=== PATIENT | female | born 1935 | race Caucasian/White ===

== ENCOUNTER 2022-02-26 12:50 | Inpatient (IN) ==
[2022-02-26] MEDS ORDERED: SODIUM CHLORIDE 0.9% 1,000 ML IV STA (13:09)
[2022-02-26 13:39] LABS: INR 1.6; PT Patient Result 17.2 SECS (10.1-12.1); Partial Thromboplastin Time 29.7 SECS (23.7-32.9)
[2022-02-26 13:43] LABS: Bilirubin,Urine Negative (Negative); Blood, Urine Moderate mg/dL (Negative); Glucose,Urine (UA) Negative (Negative); Ketones,Urine Trace mg/dL (Negative); Nitrite,Urine Negative (Negative); Protein,Urine 100 mg/dL (Negative); Urine Appearance Clear (Clear); Urine Color Yellow (Yellow); Urine Specific Gravity >= 1.030 (1.001-1.035); Urine Urobilinogen 0.2 eU/dL (<2.0); Urine pH 5.5 (4.5-8.0)
[2022-02-26 13:45] LABS: Basophils % 0.2 % (0.0-0.8); Hematocrit 39.5 VOL% (35.7-47.0); Hemoglobin 12.8 GM/DL (12.0-16.0); Immature Granulocytes % 0.4 %; Immature Granulocytes Absolute 0.02 #; Lymphocytes # 0.5 10*3/uL (1.4-4.0); Lymphocytes % 11.9 % (21.3-54.2); Mean Corpuscular HGB Conc 32.4 GM/DL (32-36); Mean Corpuscular Volume 89.6 FL (87-102); Mean Platelet Volume 9.9 FL (9.6-12.0); Monocytes # 0.9 10*3/uL (0.11-0.8); Monocytes % 19.4 % (1.7-12.7); Neutrophils % 68.1 % (38.7-73.9); Platelet Count 196 T/CUMM (130-400); Red Blood Count 4.41 MC/CUMM (3.8-5.5); Red Cell Distribution Width 14.4 % (9.3-17.3); White Blood Count 4.5 T/CUMM (4-12)
[2022-02-26 13:46] LABS: RBC,Urine 1 /HPF (0-4)
[2022-02-26 13:52] LABS: Alanine Aminotransferase 13 U/L (13-56); Albumin 3.5 G/DL (3.4-5.0); Alkaline Phosphatase 69 U/L (45-117); Aspartate Amino Transferase 26 U/L (0-37); Bilirubin,Total < 0.39 MG/DL (0.20-1.00); Blood Urea Nitrogen 21 MG/DL (7-18); Calcium 8.8 MG/DL (8.5-10.1); Carbon Dioxide 25 MMOL/L (21-32); Chloride 103 MMOL/L (98-107); Glucose 117 MG/DL (74-106); Osmolality,Calculated 273.1 MOS/KG (273-304); Potassium 4.4 MMOL/L (3.5-5.1); Sodium 135 MMOL/L (136-145); Total Protein 7.5 G/DL (6.4-8.2)
[2022-02-26 13:55] LABS: Barbiturates Screen,Urine Negative (Negative); Benzodiazepines Screen,Urine Negative (Negative); Cannabinoid Screen,Urine Negative (Negative); Opiate Screen,Urine Negative (Negative); Phencyclidine Screen,Urine Negative (Negative)
[2022-02-26 14:12] LABS: Band Neutrophils 7 % (0-10); Lymphocytes 9 % (20-55)
[2022-02-26 14:13] LABS: Platelet Estimate Normal
[2022-02-26 14:14] LABS: Total Cells Counted 100
[2022-02-26] MEDS ORDERED: GLUCAGON 1 MG VIAL IM PRN (15:02)
[2022-02-26] MEDS ORDERED: DEXTROSE 10% 250 ML BAG IV PRN (15:02)
[2022-02-26] MEDS ORDERED: ONDANSETRON 4 MG/2 ML VIAL IV PRN (15:02)
[2022-02-26 15:33] LABS: Thyroid Stimulating Hormone 1.33 uIU/ml (0.358-3.74)
[2022-02-26 15:40] LABS: Folate 12.09 NG/ML (5.38-24.0)
[2022-02-26] MEDS: LACTATED RINGERS 1,000 ML IV SCH (16:34)
[2022-02-26] MEDS: DOCUSATE SODIUM 100 MG CAPSULE PO SCH (21:54)
[2022-02-27] MEDS: LACTATED RINGERS 1,000 ML IV SCH ×2 (01:38→12:47)
[2022-02-27 05:18] LABS: Hematocrit 35.6 VOL% (35.7-47.0); Hemoglobin 11.3 GM/DL (12.0-16.0); Immature Granulocytes % 0.3 %; Immature Granulocytes Absolute 0.01 #; Lymphocytes % 28.9 % (21.3-54.2); Mean Corpuscular HGB Conc 31.7 GM/DL (32-36); Mean Corpuscular Volume 90.6 FL (87-102); Mean Platelet Volume 10.3 FL (9.6-12.0); Monocytes # 0.8 10*3/uL (0.11-0.8); Monocytes % 23.3 % (1.7-12.7); Neutrophils % 47.5 % (38.7-73.9); Platelet Count 175 T/CUMM (130-400); Red Blood Count 3.93 MC/CUMM (3.8-5.5); Red Cell Distribution Width 14.4 % (9.3-17.3); White Blood Count 3.4 T/CUMM (4-12)
[2022-02-27 05:31] LABS: INR 1.6; PT Patient Result 17.2 SECS (10.1-12.1)
[2022-02-27 05:38] LABS: Calcium 8.4 MG/DL (8.5-10.1); Potassium 3.8 MMOL/L (3.5-5.1)
[2022-02-27 05:47] LABS: Lymphocytes 23 % (20-55); Platelet Estimate Adequate; Total Cells Counted 100
[2022-02-27] MEDS ORDERED: WARFARIN 4 MG TABLET PO SCH ×2 (09:00→18:00)
[2022-02-27] MEDS: DOCUSATE SODIUM 100 MG CAPSULE PO SCH ×2 (09:39→21:11)
[2022-02-27] MEDS: PANTOPRAZOLE 40 MG TABLET PO SCH (09:39)
[2022-02-27] MEDS: EXEMESTANE 25 MG PO SCH (09:57)
[2022-02-27] MEDS ORDERED: MECLIZINE 25 MG TABLET PO PRN (11:55)
[2022-02-27] MEDS: AZITHROMYCIN 250 MG TABLET PO SCH (14:38)
[2022-02-27] MEDS: WARFARIN 5 MG TABLET PO SCH (18:43)
[2022-02-28] MEDS: LACTATED RINGERS 1,000 ML IV SCH ×2 (00:50→10:21)
[2022-02-28 06:14] LABS: Hematocrit 35.8 VOL% (35.7-47.0); Hemoglobin 11.5 GM/DL (12.0-16.0); Immature Granulocytes % 0.4 %; Immature Granulocytes Absolute 0.01 #; Lymphocytes % 33.9 % (21.3-54.2); Mean Corpuscular HGB Conc 32.1 GM/DL (32-36); Mean Corpuscular Volume 89.7 FL (87-102); Mean Platelet Volume 10.8 FL (9.6-12.0); Monocytes # 0.5 10*3/uL (0.11-0.8); Monocytes % 16.6 % (1.7-12.7); Neutrophils % 49.1 % (38.7-73.9); Platelet Count 173 T/CUMM (130-400); Red Blood Count 3.99 MC/CUMM (3.8-5.5); Red Cell Distribution Width 14.4 % (9.3-17.3); White Blood Count 2.8 T/CUMM (4-12)
[2022-02-28 06:30] LABS: INR 1.6; PT Patient Result 17.4 SECS (10.1-12.1)
[2022-02-28 06:34] LABS: Calcium 8.3 MG/DL (8.5-10.1); Osmolality,Calculated 275.8 MOS/KG (273-304); Potassium 3.6 MMOL/L (3.5-5.1)
[2022-02-28 07:35] LABS: Lymphocytes 22 % (20-55); Platelet Estimate Normal; Total Cells Counted 100
[2022-02-28] MEDS: EXEMESTANE 25 MG PO SCH (08:28)
[2022-02-28] MEDS: PANTOPRAZOLE 40 MG TABLET PO SCH (08:40)
[2022-02-28] MEDS: AZITHROMYCIN 250 MG TABLET PO SCH (08:40)
[2022-02-28] MEDS: DOCUSATE SODIUM 100 MG CAPSULE PO SCH ×2 (09:15→20:48)
[2022-02-28] MEDS: WARFARIN 5 MG TABLET PO SCH (18:46)
[2022-03-01 06:25] LABS: Basophils % 0.3 % (0.0-0.8); Eosinophils % 0.7 % (0.00-10.9); Hematocrit 37.9 VOL% (35.7-47.0); Hemoglobin 12.2 GM/DL (12.0-16.0); Immature Granulocytes % 0.3 %; Immature Granulocytes Absolute 0.01 #; Lymphocytes % 31.3 % (21.3-54.2); Mean Corpuscular HGB Conc 32.2 GM/DL (32-36); Mean Corpuscular Volume 89.8 FL (87-102); Mean Platelet Volume 11.1 FL (9.6-12.0); Monocytes # 0.4 10*3/uL (0.11-0.8); Monocytes % 12.8 % (1.7-12.7); Neutrophils % 54.6 % (38.7-73.9); Platelet Count 161 T/CUMM (130-400); Red Blood Count 4.22 MC/CUMM (3.8-5.5); Red Cell Distribution Width 14.5 % (9.3-17.3)
[2022-03-01 06:31] LABS: PT Patient Result 20.9 SECS (10.1-12.1)
[2022-03-01 06:43] LABS: Calcium 8.3 MG/DL (8.5-10.1); Osmolality,Calculated 267.4 MOS/KG (273-304); Potassium 3.8 MMOL/L (3.5-5.1)
[2022-03-01] MEDS: AZITHROMYCIN 250 MG TABLET PO SCH (09:12)
[2022-03-01] MEDS: PANTOPRAZOLE 40 MG TABLET PO SCH (09:12)
[2022-03-01] MEDS: DOCUSATE SODIUM 100 MG CAPSULE PO SCH ×2 (09:13→20:30)
[2022-03-01] MEDS: EXEMESTANE 25 MG PO SCH (09:13)
[2022-03-01 10:47] LABS: RBC,Urine 462 /HPF (0-4)
[2022-03-01 10:51] LABS: Bilirubin,Urine Negative (Negative); Blood, Urine Small mg/dL (Negative); Glucose,Urine (UA) Negative (Negative); Ketones,Urine Negative (Negative); Nitrite,Urine Negative (Negative); Protein,Urine >=3000 mg/dL (Negative); Urine Appearance Turbid (Clear); Urine Color Dark Yellow (Yellow); Urine Urobilinogen 0.2 eU/dL (<2.0); Urine pH 7.5 (4.5-8.0)
[2022-03-01] MEDS: WARFARIN 5 MG TABLET PO SCH (17:51)
[2022-03-01] MEDS: MECLIZINE 12.5 MG TABLET PO SCH (20:30)
[2022-03-02 06:06] LABS: Basophils % 0.4 % (0.0-0.8); Eosinophils # 0.1 10*3/uL (0.0-0.87); Eosinophils % 2.7 % (0.00-10.9); Immature Granulocytes % 0.4 %; Immature Granulocytes Absolute 0.01 #; Lymphocytes # 1.1 10*3/uL (1.4-4.0); Lymphocytes % 43.9 % (21.3-54.2); Mean Corpuscular HGB Conc 32.4 GM/DL (32-36); Mean Corpuscular Volume 88.5 FL (87-102); Monocytes # 0.4 10*3/uL (0.11-0.8); Monocytes % 14.1 % (1.7-12.7); Neutrophils % 38.5 % (38.7-73.9); Platelet Count 170 T/CUMM (130-400); Red Blood Count 4.18 MC/CUMM (3.8-5.5); Red Cell Distribution Width 14.6 % (9.3-17.3); White Blood Count 2.6 T/CUMM (4-12)
[2022-03-02 06:28] LABS: Calcium 8.7 MG/DL (8.5-10.1); Potassium 3.7 MMOL/L (3.5-5.1)
[2022-03-02] MEDS: DOCUSATE SODIUM 100 MG CAPSULE PO SCH ×2 (09:51→20:17)
[2022-03-02] MEDS: PANTOPRAZOLE 40 MG TABLET PO SCH (09:51)
[2022-03-02] MEDS: AZITHROMYCIN 250 MG TABLET PO SCH (09:51)
[2022-03-02] MEDS: EXEMESTANE 25 MG PO SCH (10:12)
[2022-03-02] MEDS ORDERED: MECLIZINE 12.5 MG TABLET PO SCH (10:15)
[2022-03-02] MEDS: MECLIZINE 12.5 MG TABLET PO SCH (10:35)
[2022-03-02] MEDS: cefTRIAXone 1,000 MG in SODIUM CHLORIDE 0.9% 100 ML IV SCH (10:55)
[2022-03-02] MEDS ORDERED: LACTATED RINGERS 1,000 ML IV SCH (12:00)
[2022-03-02] MEDS: WARFARIN 5 MG TABLET PO SCH ×2 (16:48→18:10)
[2022-03-02] MEDS: traMADol 50 MG TABLET PO PRN (16:49)
[2022-03-02] MEDS: MECLIZINE 25 MG TABLET PO SCH (20:17)
[2022-03-03 05:50] LABS: Eosinophils # 0.1 10*3/uL (0.0-0.87); Eosinophils % 4.6 % (0.00-10.9); Hematocrit 36.9 VOL% (35.7-47.0); Hemoglobin 11.7 GM/DL (12.0-16.0); Immature Granulocytes % 0.4 %; Immature Granulocytes Absolute 0.01 #; Lymphocytes # 1.3 10*3/uL (1.4-4.0); Lymphocytes % 46.3 % (21.3-54.2); Mean Corpuscular HGB Conc 31.7 GM/DL (32-36); Mean Corpuscular Volume 90.7 FL (87-102); Mean Platelet Volume 11.4 FL (9.6-12.0); Monocytes # 0.3 10*3/uL (0.11-0.8); Neutrophils % 36.7 % (38.7-73.9); Platelet Count 167 T/CUMM (130-400); Red Blood Count 4.07 MC/CUMM (3.8-5.5); Red Cell Distribution Width 14.6 % (9.3-17.3); White Blood Count 2.8 T/CUMM (4-12)
[2022-03-03 06:14] LABS: Band Neutrophils 3 % (0-10); Eosinophils 3 % (0-10); Lymphocytes 45 % (20-55); Microcytosis Slight; Ovalocytes Slight; Total Cells Counted 100
[2022-03-03 06:15] LABS: Platelet Estimate Adequate
[2022-03-03 06:16] LABS: Calcium 8.4 MG/DL (8.5-10.1); Osmolality,Calculated 278.5 MOS/KG (273-304); Potassium 4.2 MMOL/L (3.5-5.1)
[2022-03-03] MEDS: DOCUSATE SODIUM 100 MG CAPSULE PO SCH ×2 (10:32→20:25)
[2022-03-03] MEDS: PANTOPRAZOLE 40 MG TABLET PO SCH (10:32)
[2022-03-03] MEDS: AZITHROMYCIN 250 MG TABLET PO SCH (10:32)
[2022-03-03] MEDS: EXEMESTANE 25 MG PO SCH (10:32)
[2022-03-03] MEDS: MECLIZINE 25 MG TABLET PO SCH ×2 (10:32→20:25)
[2022-03-03] MEDS: cefTRIAXone 1,000 MG in SODIUM CHLORIDE 0.9% 100 ML IV SCH (10:33)
[2022-03-03] MEDS: WARFARIN 5 MG TABLET PO SCH (18:01)
[2022-03-03] MEDS: traMADol 50 MG TABLET PO PRN (20:25)
[2022-03-03] MEDS: CEFUROXIME 500 MG TABLET PO SCH (20:27)
[2022-03-04 06:12] LABS: Eosinophils # 0.2 10*3/uL (0.0-0.87); Eosinophils % 6.8 % (0.00-10.9); Hematocrit 36.4 VOL% (35.7-47.0); Hemoglobin 11.6 GM/DL (12.0-16.0); Immature Granulocytes % 0.5 %; Immature Granulocytes Absolute 0.01 #; Lymphocytes # 0.9 10*3/uL (1.4-4.0); Lymphocytes % 39.1 % (21.3-54.2); Mean Corpuscular HGB Conc 31.9 GM/DL (32-36); Mean Corpuscular Volume 90.5 FL (87-102); Mean Platelet Volume 10.7 FL (9.6-12.0); Monocytes # 0.3 10*3/uL (0.11-0.8); Monocytes % 12.7 % (1.7-12.7); Neutrophils % 40.9 % (38.7-73.9); Platelet Count 169 T/CUMM (130-400); Red Blood Count 4.02 MC/CUMM (3.8-5.5); Red Cell Distribution Width 14.3 % (9.3-17.3); White Blood Count 2.2 T/CUMM (4-12)
[2022-03-04 06:50] LABS: Calcium 8.6 MG/DL (8.5-10.1); Osmolality,Calculated 280.3 MOS/KG (273-304)
[2022-03-04] MEDS: CEFUROXIME 500 MG TABLET PO SCH (08:26)
[2022-03-04] MEDS: MECLIZINE 25 MG TABLET PO SCH (08:26)
[2022-03-04] MEDS: PANTOPRAZOLE 40 MG TABLET PO SCH (08:26)
[2022-03-04] MEDS: DOCUSATE SODIUM 100 MG CAPSULE PO SCH (08:27)
[2022-03-04] MEDS: AZITHROMYCIN 250 MG TABLET PO SCH (08:27)
[2022-03-04] MEDS: EXEMESTANE 25 MG PO SCH (09:39)
[2022-03-04] MEDS: WARFARIN 5 MG TABLET PO SCH (18:32)
[2022-03-04 19:15] VITALS: BP 118/76
== END 2022-03-04 19:01 | disposition swing bed (61) | DRG 558 ==
LOC: N.ED 12:50 → N.EDINP 15:02 → SUATTDRO 15:02 → N.TELES 18:02
PROVIDERS: ADMIT Internal Medicine; ATTEND Family Medicine

== ENCOUNTER 2022-04-05 01:27 | Observation (INO) ==
[2022-04-05 02:07] LABS: Basophils % 0.3 % (0.0-0.8); Eosinophils # 0.3 10*3/uL (0.0-0.87); Hematocrit 30.1 VOL% (35.7-47.0); Hemoglobin 9.7 GM/DL (12.0-16.0); Immature Granulocytes % 1.4 %; Immature Granulocytes Absolute 0.16 #; Lymphocytes # 0.9 10*3/uL (1.4-4.0); Lymphocytes % 7.6 % (21.3-54.2); Mean Corpuscular HGB Conc 32.2 GM/DL (32-36); Mean Corpuscular Volume 91.5 FL (87-102); Mean Platelet Volume 10.4 FL (9.6-12.0); Monocytes # 0.8 10*3/uL (0.11-0.8); Monocytes % 7.4 % (1.7-12.7); Neutrophils % 80.3 % (38.7-73.9); Platelet Count 308 T/CUMM (130-400); Red Blood Count 3.29 MC/CUMM (3.8-5.5); Red Cell Distribution Width 17.9 % (9.3-17.3); White Blood Count 11.1 T/CUMM (4-12)
[2022-04-05 02:08] LABS: INR 1.9; PT Patient Result 19.8 SECS (10.1-12.1); Partial Thromboplastin Time 31.9 SECS (23.7-32.9)
[2022-04-05 02:17] LABS: Albumin 2.6 G/DL (3.4-5.0); Bilirubin,Total 0.4 MG/DL (0.20-1.00); Calcium 9.2 MG/DL (8.5-10.1); Osmolality,Calculated 291.5 MOS/KG (273-304); Potassium 5.6 MMOL/L (3.5-5.1)
[2022-04-05] MEDS ORDERED: ACETAMINOPHEN 325 MG TABLET PO PRN (02:52)
[2022-04-05] MEDS ORDERED: ZALEPLON 5 MG CAPSULE PO PRN (02:52)
[2022-04-05] MEDS ORDERED: NICOTINE 21 MG/24 HR PATCH TRANSDERM PRN (02:52)
[2022-04-05] MEDS ORDERED: ONDANSETRON 4 MG/2 ML VIAL IV PRN (02:52)
[2022-04-05] MEDS ORDERED: hydrALAZINE 20 MG/1 ML VIAL IV PRN (02:52)
[2022-04-05 03:32] LABS: Basophils % 0.4 % (0.0-0.8); Eosinophils # 0.3 10*3/uL (0.0-0.87); Hematocrit 29.7 VOL% (35.7-47.0); Hemoglobin 9.4 GM/DL (12.0-16.0); Immature Granulocytes Absolute 0.11 #; Lymphocytes % 8.4 % (21.3-54.2); Mean Corpuscular HGB Conc 31.6 GM/DL (32-36); Mean Platelet Volume 10.2 FL (9.6-12.0); Monocytes # 0.9 10*3/uL (0.11-0.8); Monocytes % 7.9 % (1.7-12.7); Neutrophils % 79.3 % (38.7-73.9); Platelet Count 291 T/CUMM (130-400); Red Blood Count 3.23 MC/CUMM (3.8-5.5); Red Cell Distribution Width 17.9 % (9.3-17.3); White Blood Count 11.3 T/CUMM (4-12)
[2022-04-05 03:49] LABS: Osmolality,Calculated 294.3 MOS/KG (273-304); Potassium 5.9 MMOL/L (3.5-5.1)
[2022-04-05 07:03] LABS: PT Patient Result 20.6 SECS (10.1-12.1); Partial Thromboplastin Time 32.2 SECS (23.7-32.9)
[2022-04-05] MEDS: PANTOPRAZOLE 40 MG TABLET PO SCH (08:24)
[2022-04-05] MEDS ORDERED: SODIUM POLYSTYRENE SULFATE 15 GM/60 ML BOTTLE PO STA (08:25)
[2022-04-05] MEDS: ALBUTEROL/IPRATROPIUM 3 ML NEB RESP TX SCH ×3 (11:51→20:13)
[2022-04-05] MEDS ORDERED: WARFARIN 4 MG TABLET PO SCH (18:00)
[2022-04-05] MEDS: SODIUM ZIRCONIUM CYCLOSILICATE 10 GM PACK PO SCH (20:23)
[2022-04-06] MEDS: ALBUTEROL/IPRATROPIUM 3 ML NEB RESP TX SCH ×2 (00:59→07:00)
[2022-04-06 05:03] LABS: Basophils % 0.3 % (0.0-0.8); Eosinophils # 0.2 10*3/uL (0.0-0.87); Eosinophils % 1.9 % (0.00-10.9); Hematocrit 29.3 VOL% (35.7-47.0); Hemoglobin 9.6 GM/DL (12.0-16.0); Immature Granulocytes % 0.8 %; Immature Granulocytes Absolute 0.07 #; Lymphocytes # 0.7 10*3/uL (1.4-4.0); Mean Corpuscular HGB Conc 32.8 GM/DL (32-36); Mean Corpuscular Volume 89.6 FL (87-102); Mean Platelet Volume 10.4 FL (9.6-12.0); Monocytes # 0.7 10*3/uL (0.11-0.8); Monocytes % 7.5 % (1.7-12.7); Neutrophils % 81.5 % (38.7-73.9); Platelet Count 271 T/CUMM (130-400); Red Blood Count 3.27 MC/CUMM (3.8-5.5)
[2022-04-06 05:43] LABS: Calcium 8.8 MG/DL (8.5-10.1); Osmolality,Calculated 294.1 MOS/KG (273-304)
[2022-04-06 05:43] LABS: % Iron Saturation 14.4 % (18-50)
[2022-04-06 06:09] LABS: Folate 10.13 NG/ML (5.38-24.0)
[2022-04-06] MEDS: PANTOPRAZOLE 40 MG TABLET PO SCH (08:57)
[2022-04-06] MEDS: SODIUM ZIRCONIUM CYCLOSILICATE 10 GM PACK PO SCH (08:57)
[2022-04-06] MEDS ORDERED: CYANOCOBALAMIN 500 MCG TABLET PO SCH (09:00)
[2022-04-06 12:17] VITALS: BP 104/61
[2022-04-06] MEDS ORDERED: WARFARIN 2 MG TABLET PO SCH (18:00)
== END 2022-04-06 12:15 ==
LOC: EDBD → EDUNIT# → N.EDINP 01:27 → N.ED 01:27 → SUATTDRO 02:52 → N.5E 05:12
PROVIDERS: ADMIT Hospitalist; ATTEND Hospitalist